=== PATIENT | female | born 1990 | race Caucasian/White ===

== ENCOUNTER 2018-09-09 22:00 | Inpatient (IN) | payer OTHER ==
[~2018-09-09 22:00] MED LIST: Lidocaine 2% MPF 10 ML AMP (For Epidural Use) ONE
[2018-09-09] MEDS ORDERED: Butorphanol Tartrate 1 MG/ML VIAL SLOW IVP PRN (23:27)
[2018-09-09] MEDS ORDERED: HYDROcodone/Acetaminophen 5/325 mg Tablet PO PRN ×2 (23:27)
[2018-09-09] MEDS ORDERED: Lidocaine 1% (PF) 30 ML VIAL SC PRN (23:27)
[2018-09-09] MEDS ORDERED: Ibuprofen 800 MG TAB PO PRN (23:27)
[2018-09-09] MEDS ORDERED: Ondansetron PF 4 MG/2 ML Vial IVP PRN (23:27)
[2018-09-09] MEDS ORDERED: Promethazine HCl 25 MG/ML VIAL IM PRN (23:27)
[2018-09-09] MEDS ORDERED: NS / Oxytocin 40 units/1000ml 1,000 ML IV PRN (23:27)
[2018-09-09] MEDS ORDERED: NS w/ Oxytocin 10 units 500 ML IV SCH (23:27)
[2018-09-09 23:33] VITALS: BMI 30.9
[2018-09-09] MEDS: Lactated Ringer's 1,000 ML IV SCH (23:55)
[2018-09-10 00:20] LABS: Hemoglobin 11.4 g/dL (12.0-16.0); Mean Corpuscular HGB CONC 34.7 g/dL (32.0-36.0); Mean Corpuscular Hemoglobin 31.4 pg (27.0-31.0); Mean Corpuscular Volume 90.3 fL (78.0-98.0); Mean Platelet Volume 10.7 fL (7.4-10.4); Platelet Count 150 thou/uL (130-400); Red Blood Cell (RBC) Count 3.65 mill/uL (4.20-5.40); White Blood Cell (WBC) Count 11.8 thou/uL (4.8-10.8)
[2018-09-10] MEDS: NS w/ Oxytocin 10 units 500 ML IV SCH ×2 (00:50→23:27)
[2018-09-10] MEDS: Lactated Ringer's 1,000 ML IV SCH ×3 (00:52→18:32)
[2018-09-10 01:20] LABS: HBSAg Index 0.32 S/CO (0-0.99); Hep B Surf Ag Non-Reactive S/CO (NonReactive)
--- NOTE | 2018-09-10 08:43 | PDOC.LDHP ---
Labor and Delivery H&P Chief complaint: scheduled induction HPI: Pt is a 27yo G1 @ 40.4 weeks here for scheduled IOL. Pt had Dilapan cervical dilators placed in the office on 09/09/18. Current gestational age (weeks): 40 Due date: 09/06/18 Dating criteria: last menstrual period Grav: 1 Para: 0 Current complications: none Abnormal US findings: No Current medications: pre- vitamins Previous surgical history: none Allergies/Adverse Reactions: Allergies Allergy/AdvReac Type Severity Reaction Status Date / Time No Known Allergies Allergy Verified 03/10/13 11:22 Social history: none - Physical Exam Vital signs reviewed and normal: yes General: NAD Lungs: nonlabored breathing Abdomen: gravid Extremeties: no edema FHT: category 1 - Vaginal Exam cm dilated: 4 Effacement: 50% Station: -2 - OB Labs Blood type: A RH: positive Antibody Screen: negative HIV: negative RPR: negative HEPSAg: negative 1 hour GCT: negative GBS: negative Rubella: immune - Assessment L&D Assessment: elective induction at term - Plan Plan: admit to L&D, informed consent obtained, anesthesia consult for pain management -: A/P: IOL @ 40.4 weeks, cervix favorable after Dilapan removal, AROM on admission exam this AM w clear fluid. Plan to continue pitocin, epidural at pt request.
[2018-09-10] MEDS ORDERED: Fentanyl 4 mcg/Bup 0.1% Cadd 100 ML ONE ×2 (10:29→18:16)
[2018-09-10] MEDS ORDERED: Promethazine HCl 25 MG/ML VIAL IM PRN ×2 (11:18→21:38)
[2018-09-10] MEDS ORDERED: Lactated Ringer's 500 ML IV PRN (11:18)
[2018-09-10] MEDS ORDERED: ePHEDrine/0.9% NaCl/PF SYRINGE 50 mg/10 ml SLOW IVP PRN (11:18)
[2018-09-10] MEDS ORDERED: Naloxone HCl 0.4 mg/ml Vial IVP PRN ×4 (11:18→21:38)
[2018-09-10] MEDS ORDERED: Eucerin (Mineral Oil/Petrolatum,White) 30 gm Jar TOP PRN (11:18)
[2018-09-10] MEDS ORDERED: diphenhydrAMINE 50 MG/ML VIAL IVP PRN ×2 (11:18→21:38)
[2018-09-10] MEDS ORDERED: Acetaminophen 325 MG TAB PO PRN (11:18)
[2018-09-10] MEDS ORDERED: Ondansetron PF 4 MG/2 ML Vial IVP PRN ×3 (11:18→23:53)
[2018-09-10] MEDS ORDERED: Fentanyl 4 mcg/Bupivacaine 0.1% Cassette 100 ML EPIDURAL SCH (11:30)
[2018-09-10] MEDS ORDERED: Communication Order-Pharmacy FS SCH ×2 (11:30→21:45)
--- NOTE | 2018-09-10 16:26 | PDOC.LDPN ---
Labor & Delivery Progress Note - Subjective Subjective: comfortable - Objective Vital signs reviewed and normal: yes General: resting Dilation: 7 Effacement: 90% Station: 0 FHT: category 1 AROM: clear fluid Plan: continue plan of care -: A/P: Transitioned to active phase with cervical change from 5-7cm noted over last 3hrs. Continue to monitor. FHT reassuring.
[2018-09-10] MEDS ORDERED: Ondansetron PF 4 MG/2 ML Vial ONE ×2 (16:48→21:36)
[2018-09-10] MEDS ORDERED: ePHEDrine/0.9% NaCl/PF SYRINGE 50 mg/10 ml ONE ×2 (16:48→21:53)
[2018-09-10] MEDS ORDERED: Acetaminophen 500 MG TAB PO SCH (19:30)
[2018-09-10] MEDS ORDERED: CEFAZOLIN 2 GM/50 ML BAG ONE (21:02)
[2018-09-10] MEDS ORDERED: Bicitra 30 ML UDCUP ONE (21:02)
[2018-09-10] MEDS ORDERED: Lidocaine 2% 10 ML INJ ONE (21:23)
[2018-09-10] MEDS ORDERED: CEFAZOLIN/Water 2 GM/20 ML SYRINGE SLOW IVP SCH (21:30)
[2018-09-10] MEDS ORDERED: Azithromycin 1,000 MG in Sodium Chloride 0.9% 500 ML IVPB SCH (21:30)
--- NOTE | 2018-09-10 21:35 | PDOC.LDPN ---
Labor & Delivery Progress Note - Subjective Subjective: comfortable - Objective Vital signs reviewed and normal: yes General: resting Dilation: 7 - Assessment (1) Failure of cervical dilation Code(s): O62.0 - PRIMARY INADEQUATE CONTRACTIONS Current Visit: Yes Status: Acute Plan: other -: A/P: Pt with cervix unchanged x 5hrs and cervical swelling noted at 7cm. FHT category 2 with pitocin but now reassuring with pitocin off. Discussed indication for 1CS for failure to progress, pt agrees with plan of care. Ancef and azithromycin ordered for surgical prophylaxis.
[2018-09-10] MEDS ORDERED: Morphine PF 1 MG/ML SYR ONE (21:36)
[2018-09-10] MEDS ORDERED: Oxytocin 10 UNITS/ML VIAL ONE ×2 (21:36→22:19)
[2018-09-10] MEDS ORDERED: Naloxone HCl 0.4 mg/ml Vial IV PRN (21:38)
[2018-09-10] MEDS ORDERED: HYDROmorphone 2 MG/ML VIAL SLOW IVP PRN (21:38)
[2018-09-10] MEDS ORDERED: Meperidine HCl/PF 25 MG/ML VIAL SLOW IVP PRN (21:38)
[2018-09-10] MEDS ORDERED: Hydrocerin (Eucerin) Cream 120 gm Jar TOP PRN (21:38)
[2018-09-10] MEDS ORDERED: L&D-Morphine 4 MG/ML VIAL SLOW IVP PRN (21:38)
[2018-09-10] MEDS ORDERED: Promethazine HCl 25 MG SUPP PR PRN (21:38)
[2018-09-10] MEDS ORDERED: Ondansetron HCl/PF 4 MG/2 ML Vial IVP PRN (21:38)
[2018-09-10] MEDS ORDERED: Ketorolac Tromethamine 30 MG/ML VIAL IVP SCH (21:45)
[2018-09-10] MEDS ORDERED: Bicitra 30 ML UDCUP PO SCH (21:45)
[2018-09-10] MEDS ORDERED: CEFAZOLIN 2 GM/50 ML-DEXTROSE 2 GM in Premix Bag 1 BAG IVPB SCH (22:00)
--- NOTE | 2018-09-10 22:29 | PDOC.OPDEL ---
OB Operative/Delivery Note Delivery Dr/Surgeon: Robinson Assist: Micha Pre-Delivery Diagnosis: elective induction, other (failure to progress @ 7cm) Weeks gestation: 40 Anesthesia: epidural - Findings A Sex: female Weight: 7 lb 14 oz - 1 min: 8 - 5 min: 9 - Additional Findings/Plan Placenta delivered: spontaneous findings: low transverse hysterotomy without extension, normal uterus, normal tubes, normal ovaries, other (baby in OP) Estimated blood loss: 700ml Post delivery plan: routine recovery
[2018-09-10] MEDS ORDERED: Fentanyl 100 MCG/2 ML VIAL ONE (22:40)
[2018-09-10] MEDS ORDERED: Ketorolac Tromethamine 30 MG/ML VIAL ONE (23:22)
[2018-09-10] MEDS: Ketorolac Tromethamine 30 MG/ML VIAL IVP PRN (23:23)
[2018-09-10] MEDS ORDERED: NS / Oxytocin 40 units/1000ml 1,000 ML IV SCH (23:53)
[2018-09-10] MEDS ORDERED: Adacel (T-DAP) 0.5 ML SYRINGE IM ONE (23:53)
[2018-09-10] MEDS ORDERED: HYDROcodone/Acetaminophen 5/325 mg Tablet PO PRN (23:53)
[2018-09-10] MEDS ORDERED: diphenhydrAMINE 25 MG CAP PO PRN (23:53)
[2018-09-10] MEDS ORDERED: Lactated Ringer's 1,000 ML IV SCH (23:53)
[2018-09-10] MEDS ORDERED: Meperidine HCl/PF 25 MG/ML VIAL IM PRN (23:53)
[2018-09-10] MEDS ORDERED: Measles/Mumps/Rubella 10 MCG/0.5 ML VIAL SC ONE (23:53)
[2018-09-10] MEDS ORDERED: Lanolin Ointment 7 GM TUBE TOP PRN (23:53)
[2018-09-10] MEDS ORDERED: Bisacodyl 10 MG SUPP PR PRN (23:53)
--- NOTE | 2018-09-11 05:10 | OP ---
DATE OF PROCEDURE: 09/10/2018 PREOPERATIVE DIAGNOSES: 1. 40 weeks and 4 days. 2. Arrest of active phase at 7 cm. 3. Category 2 tracing with Pitocin augmentation. POSTOPERATIVE DIAGNOSES: 1. 40 weeks and 4 days. 2. Arrest of active phase at 7 cm. 3. Category 2 tracing with Pitocin augmentation. 4. Occiput posterior position. SURGEON: Michael Bowers DO MEAT PROCESS WORKER: Mavis Muse MD PROCEDURE PERFORMED: Primary low-transverse section. ANESTHESIA: Epidural per Dr. Feldman. COMPLICATIONS: None. ESTIMATED BLOOD LOSS: 700 mL. QUANTITATIVE BLOOD LOSS: 280 mL. OPERATIVE FINDINGS: 1. Low transverse hysterotomy without extension. 2. Meconium-stained fluid. 3. Infant delivered from occiput posterior position. 4. Apgars of 8 and 9, weight 7 pounds and 14 ounce female to nursery. 5. Placenta delivered intact. 6. Fundus firm after delivery of placenta. 7. Normal appearing uterus, tubes, and ovaries bilaterally. PROCEDURE IN DETAIL: The patient was taken back to the OR with IV fluids running, Hernandez catheter that was previously placed and epidural anesthesia that had previously been placed. Once the patient was in the OR, she was placed in dorsal supine position with a left lateral tilt. The abdomen was prepped and draped in normal fashion for section. The patient received 2 g of Ancef and 1 g of azithromycin for surgical prophylaxis. The anesthesia was tested and found to be adequate. A Pfannenstiel skin incision was made with a scalpel. Skin incision was carried down through the subcutaneous tissue with a scalpel. Once the fascia was reached, it was incised in the midline and extended superolaterally using curved Crawford scissors. Mickie clamps were placed at the superior border of the fascia, which was sharply and bluntly dissected off the rectus abdominis muscles. This was also completed from the inferior border of the fascia with the dissection taken down towards the pubic symphysis. The rectus muscles were bluntly in the midline. The peritoneum was bluntly entered and stretched laterally. The bladder was noted to be edematous over the lower uterine segment. An Stefano O retractor was placed into the abdominal cavity for retraction, visualization, and protection of the wound. A bladder flap was created with Metzenbaum scissors and the bladder was dissected away from the planned hysterotomy site. A low transverse hysterotomy was made with a scalpel and amniotomy was performed with thick meconium-stained fluid noted. The infant was noted to be in occiput posterior position. It was delivered through the hysterotomy without difficulty. After delivery of the infant, the nose and mouth were suctioned. The cord was doubly clamped and cut. The infant was handed off to the special care nurses in attendance. Cord blood was collected. The placenta was delivered. The uterus was exteriorized and massaged to firm and cleared off clot and debris. The uterus was then returned to the abdominal cavity. The hysterotomy was closed with Monocryl suture in a running locked fashion with hemostasis noted after the hysterotomy closure. The serosal edge of the bladder flap was brought back up towards the hysterotomy to restore anatomy and this was done with a series of interrupted plain gut stitches. After the hysterotomy was closed, the uterus was examined again and noted to be firm. No bleeding was noted. The hysterotomy and paracolic gutters were copiously irrigated and suctioned dry , again inspected with no bleeding noted. The rectus muscles and fascia were inspected with no bleeding noted. The Stefano O retractor had been removed prior to inspection of the rectus muscle and fascia. The rectus fascia was reapproximated with PDS suture from corner to corner in a running fashion. After the fascia was closed, the subcutaneous tissue was irrigated and dried. It was inspected and no areas of bleeding were noted. Plain gut suture was used to reapproximate the subcutaneous tissue. The subcuticular layer was closed with 4-0 Monocryl and dressed with Dermabond dressing. The patient tolerated the procedure. There were no complications. The counts were correct. Job ID: [id number] [facility]
[2018-09-11 07:02] LABS: Mean Corpuscular HGB CONC 33.8 g/dL (32.0-36.0); Mean Corpuscular Volume 91.6 fL (78.0-98.0); Mean Platelet Volume 10.9 fL (7.4-10.4); Platelet Count 77 thou/uL (130-400); RBC Distribution Width 12.1 % (11.5-14.5); Red Blood Cell (RBC) Count 3.55 mill/uL (4.20-5.40); White Blood Cell (WBC) Count 15.4 thou/uL (4.8-10.8)
[2018-09-11] MEDS: Ketorolac Tromethamine 30 MG/ML VIAL IVP PRN (07:44)
[2018-09-11] MEDS: Prenatal Vitamin 1 TAB PO SCH (07:46)
[2018-09-11] MEDS: Docusate Calcium (SURFAK) 240 MG CAP PO SCH ×2 (07:46→22:00)
--- NOTE | 2018-09-11 08:22 | PDOC.PP ---
Post Progress Note Post Day #: 1 following LTCS Subjective: patient id doing well. She has not been up to walk yet. Is , but having some trouble on one side and is using a nipple shield. her bleeding is good. She has passed gas. PO intake tolerated: yes Flatus: yes Ambulation: no Vital Signs (12 hours) Temp Pulse Resp BP Pulse Ox 09/11/18 05:00 97.6 F 71 18 119/64 09/11/18 03:05 98.1 F 73 18 114/56 L 09/11/18 02:05 98.2 F 93 18 129/60 09/11/18 01:05 98.0 F 70 18 124/62 09/11/18 00:35 97.6 F 70 20 122/77 97 09/11/18 00:28 97.6 F 70 20 122/77 97 Weight Weight 175 lb - Physical Examination Cardiovascular: no m/r/g, RRR Respiratory: clear to auscultation bilaterally Abdominal: + bowel sounds, lochia (minimal) Fundus firm & at: +1 Extremities: negative homans (B) Skin: CS incision dry & intact Neurological: no gross focal deficits Psychiatric: A&Ox3, normal affect Result Diagrams: 09/11/18 05:31 Additional Labs: Post Labs Blood Type A POSITIVE 09/09/18 23:50 Hep Bs Antigen Non-Reactive S/CO (NonReactive) 09/09/18 23:50 (1) delivery delivered Code(s): O82 - ENCOUNTER FOR DELIVERY WITHOUT INDICATION Status: Acute - Assessment/Plan A: Day one s/p LTCS for failure of cervical dilation. NML PPD #1 exam P: ambulation today. Advance diet as tolerated. consult ordered.
[2018-09-11] MEDS: HYDROcodone/Acetaminophen 5/325 mg Tablet PO PRN ×4 (10:05→22:09)
[2018-09-11] MEDS: Simethicone Chewable 80 MG TAB PO PRN ×2 (10:06→16:56)
[2018-09-11] MEDS: Ferrous Sulfate 325 MG TAB PO SCH (10:37)
[2018-09-11] MEDS: Ibuprofen 800 MG TAB PO SCH (22:00)
[2018-09-11] MEDS ORDERED: Ibuprofen 800 MG TAB PO SCH (23:59)
[2018-09-12] MEDS: Ferrous Sulfate 325 MG TAB PO SCH ×3 (03:33→21:53)
[2018-09-12] MEDS: Ibuprofen 800 MG TAB PO SCH ×3 (05:36→22:13)
[2018-09-12] MEDS: HYDROcodone/Acetaminophen 5/325 mg Tablet PO PRN ×4 (05:36→18:13)
--- NOTE | 2018-09-12 07:41 | PRG ---
DATE OF SERVICE: 09/10/2018 ASSIST NOTE The patient had a primary with primary surgeon, Dr. Stanley Bowers. I functioned as the assistant art director in that case. For complete details, please refer to the dictated operative note by Dr. Bowers. Job ID: [id number]
[2018-09-12] MEDS: Docusate Calcium (SURFAK) 240 MG CAP PO SCH ×2 (08:53→22:13)
[2018-09-12] MEDS: Prenatal Vitamin 1 TAB PO SCH (08:53)
--- NOTE | 2018-09-12 13:00 | PDOC.PP ---
Post Progress Note Post Day #: 2 Subjective: no fever or chills, cinthya PO, min pain PO intake tolerated: yes Flatus: yes Ambulation: yes Vital Signs (12 hours) Temp Pulse Resp BP Pulse Ox 09/12/18 12:06 98.6 F 69 20 146/80 H 09/12/18 08:13 98.3 F 72 20 120/74 97 Weight Weight 175 lb - Physical Examination General: NAD Respiratory: non-labored breathing Abdominal: no distention Fundus firm & at: below umb Extremities: negative homans (B) Skin: CS incision dry & intact, no rash Psychiatric: A&Ox3, normal affect Result Diagrams: 09/11/18 05:31 Additional Labs: Post Labs Blood Type A POSITIVE 09/09/18 23:50 Hep Bs Antigen Non-Reactive S/CO (NonReactive) 09/09/18 23:50 (1) Failure of cervical dilation Code(s): O62.0 - PRIMARY INADEQUATE CONTRACTIONS Status: Acute (2) delivery delivered Code(s): O82 - ENCOUNTER FOR DELIVERY WITHOUT INDICATION Status: Acute - Assessment/Plan A/P: POD2, doing well, post op goals met, considering DC today vs tomorrow.
[2018-09-12 21:17] VITALS: TEMP 98.2
--- NOTE | 2018-09-13 03:00 | PDOC.PP ---
Post Progress Note Post Day #: POD#3 Subjective: Tolerating diet, ready for home. PO intake tolerated: yes Flatus: yes Ambulation: yes Vital Signs (12 hours) Temp Pulse Resp BP BP Pulse Ox 09/12/18 20:27 98.2 F 74 16 112/68 96 09/12/18 17:10 97.8 F 75 20 130/68 96 Weight Weight 79.379 kg - Physical Examination General: NAD Respiratory: non-labored breathing Abdominal: no distention Skin: CS incision dry & intact Neurological: no gross focal deficits Psychiatric: normal affect Result Diagrams: 09/11/18 05:31 Additional Labs: Post Labs Blood Type A POSITIVE 09/09/18 23:50 Hep Bs Antigen Non-Reactive S/CO (NonReactive) 09/09/18 23:50 - Assessment/Plan Dc home. Precautions given. RTC 2 weeks.
[2018-09-13] MEDS: Ibuprofen 800 MG TAB PO SCH (06:25)
[2018-09-13] MEDS: Ferrous Sulfate 325 MG TAB PO SCH (08:17)
[2018-09-13] MEDS: Prenatal Vitamin 1 TAB PO SCH (08:27)
[2018-09-13] MEDS: Docusate Calcium (SURFAK) 240 MG CAP PO SCH (08:27)
[2018-09-13 08:49] VITALS: BP 140/78
--- NOTE | 2018-09-13 10:35 | PDOC.EVN ---
Event Note - Event Note Event Note: Patient was discharged home by Dr Farmer...I placed the order on his behalf.
== END 2018-09-13 12:00 | disposition home or self-care (01) | DRG 788 ==
LOC: L&D 23:02 → 3SW 09-11 00:37
PROVIDERS: ADMIT Obstetrics & Gynecology; ATTEND Obstetrics & Gynecology
PROC: 10D00Z1 Extraction of Products of Conception, Low, Open Approach (ICD-10-PCS; principal; 2018-09-10)
PROC: 10907ZC Drainage of Amniotic Fluid, Therapeutic from Products of Conception, Via Natural or Artificial Opening (ICD-10-PCS; 2018-09-10)
DX: O62.0 Primary inadequate contractions (principal); O64.0XX0 Obstructed labor due to incomplete rotation of fetal head, not applicable or unspecified; O77.0 Labor and delivery complicated by meconium in amniotic fluid; Z3A.40 40 weeks gestation of pregnancy; Z37.0 Single live birth
CPT/HCPCS: 36415; 51702; 85027; 86850; 86900; 86901; 87340; J0456; J1885; J2001; J2274; J2405; J2590; J3010; J7050